=== PATIENT | male | born 1960 | race Caucasian/White ===

== ENCOUNTER → 2022-02-17 16:49 | Outpatient (BNVA) | payer OTHER, SELFPAY | PROVIDERS: Referring Provider Internal Medicine Rheumatology; Visit Provider Internal Medicine | DX: M06.9 Rheumatoid arthritis, unspecified (principal); M79.642 Pain in left hand; M79.641 Pain in right hand | CPT/HCPCS: 36415; 73120; 80053; 85025; 85651; 86200; 86431; 86480; 86704; 86803; 87340 ==